=== PATIENT | male | born 1950 | race Caucasian/White ===

== ENCOUNTER → 2019-07-11 12:04 | Outpatient (CLI) | payer OTHER, SELFPAY ==
--- NOTE | ~2019-07-11 | XR_ITS ---
EXAMINATION:XR cervical spine 4-5V DATE: 07/11/2019 12:37 INDICATION: Cervical disc disorder TECHNIQUE: AP, lateral and neutral, flexion, extension, lateral swimmers and odontoid views of the ce rvical spine are provided. COMPARISON: None FINDINGS: There are changes of interval anterior fusion from C5 through C7. Alignment is normal. Ther e is no laxity with flexion or extension. The odontoid is intact. No fracture is identified. The vert ebral body heights are normal. Prevertebral soft tissues are normal. IMPRESSION: 1. Changes of interval anterior fusion from C5 through C7 without acute abnormality. Reviewed, dictated and finalized at location B. IMPRESSION: 1. Changes of interval anterior fusion from C5 through C7 without acute abnorma lity.
== END ==
DX: M50.120 Mid-cervical disc disorder, unspecified level (principal); Z98.1 Arthrodesis status
CPT/HCPCS: 72050

== ENCOUNTER 2019-11-14 06:58 | Outpatient (CLI) | payer OTHER, SELFPAY ==
--- NOTE | ~2019-11-14 | CT_ITS ---
EXAMINATION: CT abdomen wo con DATE: 11/14/2019 07:21 INDICATION: Epigastric abdominal pain. TECHNIQUE: Computed tomography (CT) of the abdomen was performed without intravenous contrast. Automa peña exposure control and iterative reconstruction technique were employed. The dose-length product wa s 686.78 mGy-cm. COMPARISON: CT abdomen and pelvis 10/06/2010 FINDINGS: The visualized portions of the lung bases are clear without pneumonia or pleural effusion. The heart size is normal. No pericardial effusion. There are coronary artery calcifications. There ar e cysts in the liver measuring up to 2.9 cm. The gallbladder, spleen, pancreas, adrenal glands, and k idneys are normal. There is no urolithiasis. There are no dilated loops of bowel. There are no pathol ogically enlarged lymph nodes. There is no free intraperitoneal fluid. There is mild thoracolumbar sp ondylosis. IMPRESSION: 1. No specific etiology for the patient's symptoms. Reviewed, dictated and finalized at location A.
== END 2019-11-14 06:59 | disposition home or self-care (01) ==
PROVIDERS: PCP Family Medicine; Visit Provider Family Medicine
DX: R10.13 Epigastric pain (principal)
CPT/HCPCS: 74150

== ENCOUNTER 2020-02-12 01:39 | Outpatient (CLI) | payer OTHER, SELFPAY ==
[2020-02-12 21:22] LABS: SARS-CoV-2 RNA PCR Negative
== END 2020-02-12 01:40 | disposition home or self-care (01) ==
LOC: ANHCOVIDDT 01:39
PROVIDERS: PCP Family Medicine; Visit Provider Internal Medicine Gastroenterology
DX: Z01.812 Encounter for preprocedural laboratory examination (principal); Z20.828 Contact with and (suspected) exposure to other viral communicable diseases
CPT/HCPCS: 87635; C9803; U0003

== ENCOUNTER 2020-02-15 01:21 | Day surgery (SDC) | payer OTHER, SELFPAY ==
[2020-02-08 14:39] VITALS: BMI 31.8
[2020-02-15 10:45] VITALS: BP 140/69; PULSE 84; RESP 18; TEMP 36.8; O2SAT 98; BMI 31.4
[2020-02-15] MEDS: LACTATED RINGERS 1,000 ML 150 ML IV CONT (10:56)
--- NOTE | 2020-02-15 11:29 | WPDANESEPPF ---
Anes - Initial Pre Proc Eval Procedure: Operation Date: 02/15/20 12:00 Proposed Procedures p Colonoscopy - Adán Swanson DO Date/Time: 02/15/20 11:29 Surgeon: Adán Swanson DO Pre Op Diagnosis: Left Upper Quadrant Abdominal Pain Patient Data Age: 69 Gender: M Height: 5 ft 9 in Weight: 96.6 kg Last Vital Signs Temp 98.3 F 02/15/20 10:45 Pulse 84 02/15/20 10:45 Resp 18 02/15/20 10:45 BP 140/69 02/15/20 10:45 Pulse Ox 98 02/15/20 10:45 Allergies Allergy/AdvReac Type Severity Reaction Status Date / Time No Known Allergies Allergy Verified 02/15/20 10:37 Home Medications Medication Instructions Recorded Confirmed Type tamsulosin 0.4 mg capsule 0.4 mg PO QPM cap 04/04/19 02/15/20 History aspirin 81 mg tablet,delayed 81 mg PO DAILY 07/04/19 02/15/20 History release atorvastatin 80 mg tablet 80 mg PO DAILY 07/04/19 02/15/20 History lisinopril 20 1 tablet PO DAILY 07/04/19 02/15/20 History mg-hydrochlorothiazide 25 mg tablet amlodipine 10 mg tablet 10 mg PO DAILY #90 tablet 11/28/19 02/15/20 Rx hydroxyzine HCl 50 mg tablet 50 mg PO BID PRN #60 tablet 02/01/20 02/15/20 Rx spironolactone 25 mg tablet 25 mg PO DAILY 02/01/20 02/15/20 History tadalafil 10 mg tablet 10 mg PO DAILY PRN 02/01/20 02/08/20 History fluticasone 250 mcg-salmeterol 50 1 inh INHALATION BID #60 ea 02/06/20 02/15/20 Rx mcg/dose blistr powdr for inhalation Patient hx anesthesia problems: none Family hx anesthesia problems: none PMFSH Past Medical History Medical History Asthma BMI 32.0-32.9,adult BPH (benign prostatic hyperplasia) CAD (coronary artery disease) HLD (hyperlipidemia) HTN (hypertension) Mild asthma Mitral valve prolapse Surgical History Surgical History Hx of cardiac catheterization Hx of heart artery stent Status post coronary artery stent placement Social History Social History Smoking packs per day: 0.5 Smoking cigarettes per day: 10.0 Years smoked: 8 Smoking pack-years: 4.00 Smoking status: Former smoker Tobacco type: cigarettes Second hand tobacco smoke exposure: No Smoking end date: 03/29/77 Alcohol intake: current Drinks per week: 4 Alcohol use details: BEER Substance use: never Substance use type: does not use Living arrangements: with family Gender identity (if verbalized by the patient): Male Spiritual care concerns: No Agree to blood products: Yes Anes - Eval Final PreProcedure Day of Procedure 02/15/20 11:29 Patient weight: overweight Heart: regular rate and rhythm Lungs: clear to auscultation Airway: Mallampati scale class II Neurological: alert and oriented Last oral intake: >/= 8 hours ASA classification: III Emergent: no Anesthetic plan: proceed Anesthesia type and monitoring: general GIVS and standard monitoring Informed Consent: The patient's anesthetic plan and its attendant risks and benefits were discussed with the patient/family/POA. Questions were solicited and answers provided to the satisfaction of the patient/family/POA.
--- NOTE | 2020-02-15 11:54 | PM.IMHP ---
H&P: HPI History of Present Illness Date/Time: 02/15/20 11:54 Chief complaint: Left Upper Quadrant Abdominal Pain Narrative: reason for visit is colonoscopy. Very pleasant gentleman is here at the request of the primary physician. The patient was examined. Impression: Screening colonoscopy. Patient does have alternating constipation diarrhea which is compatible with IBS. Asthma. HLD. HTN. ED. BPH. Obesity. CAD status post angioplasty with stent placement x2. Recommendation: Colonoscopy. History: This very pleasant gentleman is a history of colonoscopy several years ago. He is here for screening colonoscopy. He does have complaints of alternating constipation and diarrhea. He will occasionally notice dark stool. He really has indigestion. Patient is here for colonoscopy for screening. Patient does complain of some anxiety over the quarantine. Physical examination: General: very pleasant patient in no acute distress. HEENT: Head was normocephalic sclerae is clear mouth without masses neck was supple. Heart: Rate rhythm regular without S3 or S4. Lungs: CTA. Abdomen: Soft with no guarding or rigidity. Bowel sounds were active. Neurologic: Cranial nerves 2 through 12 intact. No focal defects. No clonus. Musculoskeletal system: Revealed no joint tenderness or swelling no muscle atrophy. Extremities: Reveal no significant edema. Skin: Warm and dry with normal turgor. Mental status: intact. Patient is alert and oriented. Review of Systems Review of Systems: All systems reviewed & are unremarkable except as noted in HPI and below PMFSH Past Medical History Medical History Asthma BMI 32.0-32.9,adult BPH (benign prostatic hyperplasia) CAD (coronary artery disease) HLD (hyperlipidemia) HTN (hypertension) Mild asthma Mitral valve prolapse Surgical History Surgical History Hx of cardiac catheterization Hx of heart artery stent Status post coronary artery stent placement Social History Social History Smoking packs per day: 0.5 Smoking cigarettes per day: 10.0 Years smoked: 8 Smoking pack-years: 4.00 Smoking status: Former smoker Tobacco type: cigarettes Second hand tobacco smoke exposure: No Smoking end date: 03/29/77 Alcohol intake: current Drinks per week: 4 Alcohol use details: BEER Substance use: never Substance use type: does not use Living arrangements: with family Gender identity (if verbalized by the patient): Male Spiritual care concerns: No Agree to blood products: Yes Meds Home Medications and Allergies Home Medications Medication Instructions Recorded Confirmed Type tamsulosin 0.4 mg capsule 0.4 mg PO QPM cap 04/04/19 02/15/20 History aspirin 81 mg tablet,delayed 81 mg PO DAILY 07/04/19 02/15/20 History release atorvastatin 80 mg tablet 80 mg PO DAILY 07/04/19 02/15/20 History lisinopril 20 1 tablet PO DAILY 07/04/19 02/15/20 History mg-hydrochlorothiazide 25 mg tablet amlodipine 10 mg tablet 10 mg PO DAILY #90 tablet 11/28/19 02/15/20 Rx hydroxyzine HCl 50 mg tablet 50 mg PO BID PRN #60 tablet 02/01/20 02/15/20 Rx spironolactone 25 mg tablet 25 mg PO DAILY 02/01/20 02/15/20 History tadalafil 10 mg tablet 10 mg PO DAILY PRN 02/01/20 02/08/20 History fluticasone 250 mcg-salmeterol 50 1 inh INHALATION BID #60 ea 02/06/20 02/15/20 Rx mcg/dose blistr powdr for inhalation Allergies Allergy/AdvReac Type Severity Reaction Status Date / Time No Known Allergies Allergy Verified 02/15/20 10:37 Vital Signs Vital Signs - 24 hr 02/15/20 10:45 Temperature 36.8 C Pulse Rate 84 Respiratory Rate 18 Blood Pressure 140/69 Pulse Oximetry 98
[2020-02-15] MEDS: CENTRAL LINE FLUSH 8 ML XX (12:23)
[2020-02-15 12:27] VITALS: BP 86/53; PULSE 75; RESP 21; O2SAT 93
[2020-02-15 12:37] VITALS: BP 87/53; PULSE 78; RESP 22; O2SAT 95
[2020-02-15 12:47] VITALS: BP 113/72; PULSE 66; RESP 20; O2SAT 99
== END 2020-02-15 13:04 | disposition home or self-care (01) ==
PROVIDERS: PCP Family Medicine; Visit Provider Internal Medicine Gastroenterology
PROC: 0DJD8ZZ Inspection of Lower Intestinal Tract, Via Natural or Artificial Opening Endoscopic (ICD-10-PCS; CPT 45378; principal; 2020-02-15 12:00)
DX: Z12.11 Encounter for screening for malignant neoplasm of colon (principal); K55.20 Angiodysplasia of colon without hemorrhage; K64.8 Other hemorrhoids; K59.00 Constipation, unspecified; R19.7 Diarrhea, unspecified; I10 Essential (primary) hypertension; E78.5 Hyperlipidemia, unspecified; I25.10 Atherosclerotic heart disease of native coronary artery without angina pectoris; J45.909 Unspecified asthma, uncomplicated; I34.1 Nonrheumatic mitral (valve) prolapse; N40.0 Benign prostatic hyperplasia without lower urinary tract symptoms; E66.9 Obesity, unspecified; Z68.31 Body mass index [BMI] 31.0-31.9, adult; Z79.82 Long term (current) use of aspirin; Z95.5 Presence of coronary angioplasty implant and graft; Z87.891 Personal history of nicotine dependence
CPT/HCPCS: 45381; 45388; J2704; J7120

== ENCOUNTER 2020-02-23 12:29 | Emergency (ER) | payer OTHER, SELFPAY ==
--- NOTE | ~2020-02-23 | XR_ITS ---
EXAMINATION: XR chest 2V DATE: 02/23/2020 16:24 INDICATION: Dizziness. Asthma. TECHNIQUE: Frontal and lateral views of the chest were obtained. COMPARISON: Chest 2 views 11/02/2016, CT abdomen and pelvis 11/14/2019 FINDINGS: The chest demonstrates clear lungs without pneumonia, pleural effusion, or pneumothorax. Th e heart size is normal. There are changes of anterior fusion procedure in cervical spine. IMPRESSION: 1. No acute cardiopulmonary disease. Reviewed, dictated and finalized at location A. ENGINEER
[2020-02-23 12:55] VITALS: BP 136/69; PULSE 87; RESP 16; TEMP 36.6; O2SAT 100
--- NOTE | 2020-02-23 15:19 | ED.DIZZY ---
HPI - Dizziness General Chief Complaint: Dizziness Stated Complaint: heart racing Time Seen by Provider: 02/23/20 15:19 Source: patient Mode of arrival: ambulatory Limitations: no limitations History of Present Illness HPI Narrative: Patient is a 69-year-old gentleman with a history of hyperlipidemia, coronary artery disease who presents for evaluation of shortness of breath with exertion. Patient states he was moving some heavy boxes out of his basement this morning he began to feel lightheaded, had racing heart and short of breath. He states his heart rate increased to the 119. Patient denied any chest pain. He reported mild nausea. His symptoms resolved with rest. Patient has been compliant with his medications. He has a history of 2 stents and follows with Dr. Jaquez with cardiology. Patient denies any current dizziness. No lightheadedness. No current chest pain. Related Data Home Medications Medication Instructions Recorded Confirmed tamsulosin 0.4 mg capsule 0.4 mg PO QPM cap 04/04/19 02/15/20 aspirin 81 mg tablet,delayed 81 mg PO DAILY 07/04/19 02/15/20 release atorvastatin 80 mg tablet 80 mg PO DAILY 07/04/19 02/15/20 lisinopril 20 1 tablet PO DAILY 07/04/19 02/15/20 mg-hydrochlorothiazide 25 mg tablet spironolactone 25 mg tablet 25 mg PO DAILY 02/01/20 02/15/20 tadalafil 10 mg tablet 10 mg PO DAILY PRN 02/01/20 02/08/20 Allergies Allergy/AdvReac Type Severity Reaction Status Date / Time No Known Allergies Allergy Verified 02/23/20 16:12 Review of Systems Review of Systems: Narrative: CONSTITUTIONAL: Denies fever, chills, or sweats. EYES: Denies visual changes, redness, or discharge. ENT: Denies rhinorrhea, congestion, sore throat, or otalgia. CARDIOVASCULAR: Denies current chest pain, palpitations, or edema. RESPIRATORY: Denies cough or dyspnea. GASTROINTESTINAL: Denies abdominal pain, nausea, vomiting, or diarrhea. GENITOURINARY: Denies dysuria or hematuria. SKIN: Denies rash or itching. MUSCULOSKELETAL: Denies back pain, joint pain, or myalgia. NEUROLOGIC: Denies headache, numbness, or weakness. [facility] Past Medical History Medical History (Updated 11/27/20 @ 20:05 by Gretta Bautista MD) Asthma BMI 32.0-32.9,adult BPH (benign prostatic hyperplasia) CAD (coronary artery disease) HLD (hyperlipidemia) HTN (hypertension) Mild asthma Mitral valve prolapse Surgical History Surgical History Hx of cardiac catheterization Hx of heart artery stent Status post coronary artery stent placement Social History Social History Smoking packs per day: 0.5 Smoking cigarettes per day: 10.0 Years smoked: 8 Smoking pack-years: 4.00 Smoking status: Former smoker Tobacco type: cigarettes Second hand tobacco smoke exposure: No Smoking end date: 03/29/77 Alcohol intake: current Drinks per week: 4 Substance use: never Substance use type: does not use Gender identity (if verbalized by the patient): Male Spiritual care concerns: No Agree to blood products: Yes Exam Narrative: Exam Narrative: GENERAL: Awake, alert, conversant HEAD: Normocephalic, atraumatic. EYES: PERRLA and EOMI. ENT: Nares clear, no rhinorrhea or epistaxis. Mucous membranes moist. NECK: Supple. CHEST: No respiratory distress, breathing even and non labored, no chest wall tenderness HEART: Regular rate, sinus rhythm ABDOMEN:Non distended, non tender EXTREMITIES: Normal range of motion. No edema. SKIN: Warm, dry, no rash. NEURO:No focal deficits. Alert and oriented x3 Course Vital Signs Vital signs: Vital Signs Temperature 36.6 C 02/23/20 12:55 Pulse Rate 87 02/23/20 12:55 Respiratory Rate 16 02/23/20 12:55 Blood Pressure 136/69 02/23/20 12:55 Pulse Oximetry 100 02/23/20 12:55 Temperature 36.6 C 02/23/20 12:55 Pulse Rate 87 02/23/20 12:55 Respiratory Rate 16
[2020-02-23 16:45] LABS: Basophils Percent Auto 0.4 % (0.2-1.2); Eosinophils Absolute Auto 0.1 K/mm3 (0-0.3); Eosinophils Percent Auto 1.3 % (0-4.4); Hematocrit 44.1 % (42.0-52.0); Hemoglobin 15.1 g/dL (14.0-18.0); Immature Granulocyte Absolute 0.02 K/mm3 (0.00-0.031); Immature Granulocyte Percent A 0.2 % (0-0.5); Lymphocytes Absolute Auto 1.35 K/mm3 (0.9-3.2); Lymphocytes Percent Auto 14.7 % (18.3-44.2); Mean Corpuscular HGB Conc 34.2 g/dl (32-36); Mean Corpuscular Hemoglobin 29.5 pg (26-34); Mean Corpuscular Volume 86.1 fl (80-100); Mean Platelet Volume 9.3 fl (7.4-10.4); Monocytes Absolute Auto 0.6 K/mm3 (0.1-0.6); Neutrophils Percent Auto 76.4 % (45.5-73.1); Platelet Count Result 237 k/mm3 (150-375); Red Blood Count 5.12 M/mm3 (4.6-6.20); Red Cell Distribution Width 13.9 % (11.5-14.5); White Blood Count 9.2 K/mm3 (4.5-10.0)
[2020-02-23 16:55] LABS: Partial Thromboplastin Time 25.1 SECONDS (22.3-36.8); Prothrombin Time 13.3 Seconds (11.1-14.7)
[2020-02-23 16:56] LABS: Anion Gap 13 mmol/L (8-16); Blood Urea Nitrogen 19 mg/dL (9-20); Calcium 9.4 mg/dL (8.4-10.2); Carbon Dioxide 25 mmol/L (22-30); Chloride 95 mmol/L (98-107); Estimated CRCL calculation 40 ml/min; Estimated Glomerular Filt Rate 60; Glucose 115 mg/dL (75-110); Potassium 4.2 mmol/L (3.4-5.0); Sodium 133 mmol/L (137-145)
[2020-02-23 17:12] LABS: Troponin I < 0.012 ng/mL (0.000-0.034)
[2020-02-23] MEDS: ASPIRIN 81 MG CHEWABLE TABLET 324 MG PO (17:32)
--- NOTE | 2020-02-23 17:32 | PC.NURSE ---
Pt is not nauseated at present, holding zofran.
[2020-02-23 19:45] LABS: Troponin I < 0.012 ng/mL (0.000-0.034)
[2020-02-23 20:50] VITALS: BP 118/73; PULSE 67; RESP 17; TEMP 36.6; O2SAT 100
== END 2020-02-23 20:56 | disposition home or self-care (01) ==
PROVIDERS: Emergency Provider Emergency Medicine; PCP Family Medicine
DX: R06.00 Dyspnea, unspecified (principal); E78.5 Hyperlipidemia, unspecified; I25.10 Atherosclerotic heart disease of native coronary artery without angina pectoris; N40.0 Benign prostatic hyperplasia without lower urinary tract symptoms; J45.909 Unspecified asthma, uncomplicated; I34.1 Nonrheumatic mitral (valve) prolapse; Z95.5 Presence of coronary angioplasty implant and graft; Z87.891 Personal history of nicotine dependence
CPT/HCPCS: 36415; 71046; 80048; 84484; 85025; 85610; 85730; 93005; 99284; A9270

== ENCOUNTER → 2020-05-06 01:12 | Outpatient (CLI) | payer OTHER, SELFPAY ==
[2020-05-06 18:28] LABS: SARS-CoV-2 RNA PCR Negative
== END ==
PROVIDERS: PCP Physician Assistant; Visit Provider Internal Medicine Gastroenterology
DX: Z01.812 Encounter for preprocedural laboratory examination (principal); Z20.822 Contact with and (suspected) exposure to COVID-19
CPT/HCPCS: C9803; U0003; U0005

== ENCOUNTER 2020-05-09 00:53 | Day surgery (SDC) | payer OTHER, SELFPAY ==
[2020-04-18 14:08] VITALS: BMI 31.8
[2020-05-09 07:57] VITALS: BP 147/78; PULSE 79; RESP 20; TEMP 37.3; O2SAT 99
[2020-05-09] MEDS: LACTATED RINGERS 1,000 ML 150 ML IV CONT (08:14)
--- NOTE | 2020-05-09 08:46 | WPDANESEPPF ---
Anes - Initial Pre Proc Eval Procedure: Operation Date: 05/09/20 09:00 Proposed Procedures p Esophagogastroduodenoscopy - Adán Swanson DO Date/Time: 05/09/20 08:46 Surgeon: Adán Swanson DO Pre Op Diagnosis: Epigastric Pain Patient Data Age: 69 Gender: M Height: 1.75 m Weight: 98.4 kg Last Vital Signs Temp 37.3 C 05/09/20 07:57 Pulse 79 05/09/20 07:57 Resp 20 05/09/20 07:57 BP 147/78 H 05/09/20 07:57 Pulse Ox 99 05/09/20 07:57 Allergies Allergy/AdvReac Type Severity Reaction Status Date / Time No Known Allergies Allergy Verified 04/18/20 14:02 Home Medications Medication Instructions Recorded Confirmed Type tamsulosin 0.4 mg capsule 0.4 mg PO QPM cap 04/04/19 04/18/20 History aspirin 81 mg tablet,delayed 81 mg PO DAILY 07/04/19 04/18/20 History release atorvastatin 80 mg tablet 80 mg PO DAILY 07/04/19 04/18/20 History lisinopril 20 1 tablet PO DAILY 07/04/19 04/18/20 History mg-hydrochlorothiazide 25 mg tablet amlodipine 10 mg tablet 10 mg PO DAILY #90 tablet 11/28/19 04/18/20 Rx spironolactone 25 mg tablet 25 mg PO DAILY 02/01/20 04/18/20 History fluticasone 250 mcg-salmeterol 50 1 inh INHALATION BID #60 ea 04/02/20 04/18/20 Rx mcg/dose blistr powdr for inhalation carvedilol 3.125 mg PO BID 04/18/20 04/18/20 History Patient hx anesthesia problems: none Family hx anesthesia problems: none PMFSH Past Medical History Medical History Asthma BMI 32.0-32.9,adult BPH (benign prostatic hyperplasia) CAD (coronary artery disease) HLD (hyperlipidemia) HTN (hypertension) Mild asthma Mitral valve prolapse Surgical History Surgical History Hx of cardiac catheterization Hx of heart artery stent Status post coronary artery stent placement Social History Social History Smoking packs per day: 0.5 Smoking cigarettes per day: 10.0 Years smoked: 8 Smoking pack-years: 4.00 Smoking status: Former smoker Tobacco type: cigarettes Second hand tobacco smoke exposure: No Smoking end date: 03/29/77 Alcohol intake: current Drinks per week: 2 Substance use: never Substance use type: does not use Living arrangements: with family Gender identity (if verbalized by the patient): Male Spiritual care concerns: No Agree to blood products: Yes Anes - Eval Final PreProcedure Day of Procedure 05/09/20 08:46 Patient weight: obese Heart: regular rate and rhythm Lungs: clear to auscultation and normal air movement Airway: Mallampati scale class II Neurological: alert and oriented Last oral intake: >/= 8 hours ASA classification: III Emergent: no Anesthetic plan: proceed Anesthesia type and monitoring: general GIVS Informed Consent: The patient's anesthetic plan and its attendant risks and benefits were discussed with the patient/family/POA. Questions were solicited and answers provided to the satisfaction of the patient/family/POA.
--- NOTE | 2020-05-09 09:28 | WPDGICN ---
GI Consult Note Consult date/time: 05/09/20 09:28 HPI: Reason for visit is EGD. This very pleasant gentleman's here for an EGD. At the request of the primary physician. Impression: Here of a gentleman with left upper quadrant pain. We will evaluate for underlying peptic ulcer disease. Definite etiology the pain is certainly obscured at this time. GERD fairly well controlled on medication. HTN. HLD. CAD status post stent placement x2. BPH. Asthma. Recommendation: EGD. History: This very pleasant gentleman is here for left upper quadrant abdominal pain. He has this abdominal pain that occurs in the left upper quadrant. It is unaffected by eating or defecation. He does week and occasionally nocturnally with the pain. The pain is described as cramping and burning in nature. Hematochezia, melena colic stools overnight. He has occasional breakthrough heartburn on 40 mg of omeprazole per day. Dysphagia And odynophagia are denied. Fever, chills, night sweats and weight loss Are denied. Physical examination: General: very pleasant patient in no acute distress. HEENT: Head was normocephalic sclerae is clear mouth without masses neck was supple. Heart: Rate rhythm regular without S3 or S4. Lungs: CTA. Abdomen: Soft with no guarding or rigidity. Bowel sounds were active. Neurologic: Cranial nerves 2 through 12 intact. No focal defects. No clonus. Musculoskeletal system: Revealed no joint tenderness or swelling no muscle atrophy. Extremities: Reveal no significant edema. Skin: Warm and dry with normal turgor. Mental status: intact. Patient is alert and oriented. Review of Systems Review of Systems: All systems reviewed & are unremarkable except as noted in HPI and below PMFSH Past Medical History Medical History Asthma BMI 32.0-32.9,adult BPH (benign prostatic hyperplasia) CAD (coronary artery disease) HLD (hyperlipidemia) HTN (hypertension) Mild asthma Mitral valve prolapse Surgical History Surgical History Hx of cardiac catheterization Hx of heart artery stent Status post coronary artery stent placement Social History Social History Smoking packs per day: 0.5 Smoking cigarettes per day: 10.0 Years smoked: 8 Smoking pack-years: 4.00 Smoking status: Former smoker Tobacco type: cigarettes Second hand tobacco smoke exposure: No Smoking end date: 03/29/77 Alcohol intake: current Drinks per week: 2 Substance use: never Substance use type: does not use Living arrangements: with family Gender identity (if verbalized by the patient): Male Spiritual care concerns: No Agree to blood products: Yes Meds Home Medications and Allergies Home Medications Medication Instructions Recorded Confirmed Type tamsulosin 0.4 mg capsule 0.4 mg PO QPM cap 04/04/19 04/18/20 History aspirin 81 mg tablet,delayed 81 mg PO DAILY 07/04/19 04/18/20 History release atorvastatin 80 mg tablet 80 mg PO DAILY 07/04/19 04/18/20 History lisinopril 20 1 tablet PO DAILY 07/04/19 04/18/20 History mg-hydrochlorothiazide 25 mg tablet amlodipine 10 mg tablet 10 mg PO DAILY #90 tablet 11/28/19 04/18/20 Rx spironolactone 25 mg tablet 25 mg PO DAILY 02/01/20 04/18/20 History fluticasone 250 mcg-salmeterol 50 1 inh INHALATION BID #60 ea 04/02/20 04/18/20 Rx mcg/dose blistr powdr for inhalation carvedilol 3.125 mg PO BID 04/18/20 04/18/20 History Allergies Allergy/AdvReac Type Severity Reaction Status Date / Time No Known Allergies Allergy Verified 04/18/20 14:02 Vital Signs Vital Signs - 24 hr 05/09/20 07:57 Temperature 37.3 C Pulse Rate 79 Respiratory Rate 20 Blood Pressure 147/78 H Pulse Oximetry 99
[2020-05-09] MEDS: BENZOCAINE (*SP) 60 ML SPRAY CAN (HURRICAINE) 1 SPRAY MUCOUS MEM (09:33)
[2020-05-09 09:43] VITALS: BP 104/66; PULSE 76; RESP 23; O2SAT 98
--- NOTE | 2020-05-09 09:51 | WPDGICN ---
GI Consult Note Consult date/time: 05/09/20 09:51 HPI: Reason for visit is colonoscopy. This very pleasant gentleman seen in consultation request of the primary physician. Impression: This very pleasant gentleman is here with a positive stool base DNA test. He does have some loose stools. With the evaluate for underlying inflammatory neoplastic disease. Pre diabetes. HLD. HTN. Glaucoma. Neuropathy. History prostate cancer status post prostatectomy. Recommendation: Colonoscopy. History: This very pleasant gentleman is here for colonoscopy. Has a positive stool based DNA test. He does complain of loose stools at times. Nausea, vomiting, hematemesis, dysphagia, odynophagia, fever Cate through tonight. He does have a 5 lb weight loss which she attributes to discontinuing sweets. He is here for colonoscopy due to his positive stool base DNA test. Physical examination: General: very pleasant patient in no acute distress. HEENT: Head was normocephalic sclerae is clear mouth without masses neck was supple. Heart: Rate rhythm regular without S3 or S4. Lungs: CTA. Abdomen: Soft with no guarding or rigidity. Bowel sounds were active. Neurologic: Cranial nerves 2 through 12 intact. No focal defects. No clonus. Musculoskeletal system: Revealed no joint tenderness or swelling no muscle atrophy. Extremities: Reveal no significant edema. Skin: Warm and dry with normal turgor. Mental status: intact. Patient is alert and oriented. Review of Systems Review of Systems: All systems reviewed & are unremarkable except as noted in HPI and below PMFSH Past Medical History Medical History Asthma BMI 32.0-32.9,adult BPH (benign prostatic hyperplasia) CAD (coronary artery disease) HLD (hyperlipidemia) HTN (hypertension) Mild asthma Mitral valve prolapse Surgical History Surgical History Hx of cardiac catheterization Hx of heart artery stent Status post coronary artery stent placement Social History Social History Smoking packs per day: 0.5 Smoking cigarettes per day: 10.0 Years smoked: 8 Smoking pack-years: 4.00 Smoking status: Former smoker Tobacco type: cigarettes Second hand tobacco smoke exposure: No Smoking end date: 03/29/77 Alcohol intake: current Drinks per week: 2 Substance use: never Substance use type: does not use Living arrangements: with family Gender identity (if verbalized by the patient): Male Spiritual care concerns: No Agree to blood products: Yes Meds Home Medications and Allergies Home Medications Medication Instructions Recorded Confirmed Type tamsulosin 0.4 mg capsule 0.4 mg PO QPM cap 04/04/19 04/18/20 History aspirin 81 mg tablet,delayed 81 mg PO DAILY 07/04/19 04/18/20 History release atorvastatin 80 mg tablet 80 mg PO DAILY 07/04/19 04/18/20 History lisinopril 20 1 tablet PO DAILY 07/04/19 04/18/20 History mg-hydrochlorothiazide 25 mg tablet amlodipine 10 mg tablet 10 mg PO DAILY #90 tablet 11/28/19 04/18/20 Rx spironolactone 25 mg tablet 25 mg PO DAILY 02/01/20 04/18/20 History fluticasone 250 mcg-salmeterol 50 1 inh INHALATION BID #60 ea 04/02/20 04/18/20 Rx mcg/dose blistr powdr for inhalation carvedilol 3.125 mg PO BID 04/18/20 04/18/20 History Allergies Allergy/AdvReac Type Severity Reaction Status Date / Time No Known Allergies Allergy Verified 04/18/20 14:02 Vital Signs Vital Signs - 24 hr 05/09/20 07:57 Temperature 37.3 C Pulse Rate 79 Respiratory Rate 20 Blood Pressure 147/78 H Pulse Oximetry 99
[2020-05-09 09:53] VITALS: BP 112/72; PULSE 75; RESP 20; O2SAT 97
[2020-05-09 10:01] VITALS: BP 106/83; PULSE 75; RESP 20; O2SAT 98
== END 2020-05-09 10:17 | disposition home or self-care (01) ==
PROVIDERS: PCP Physician Assistant; Visit Provider Internal Medicine Gastroenterology
PROC: 0DJ08ZZ Inspection of Upper Intestinal Tract, Via Natural or Artificial Opening Endoscopic (ICD-10-PCS; CPT 43235; principal; 2020-05-09 09:00)
DX: R10.12 Left upper quadrant pain (principal); K44.9 Diaphragmatic hernia without obstruction or gangrene; K21.9 Gastro-esophageal reflux disease without esophagitis; R19.5 Other fecal abnormalities; I10 Essential (primary) hypertension; E78.5 Hyperlipidemia, unspecified; R73.03 Prediabetes; G62.9 Polyneuropathy, unspecified; H40.9 Unspecified glaucoma; Z85.46 Personal history of malignant neoplasm of prostate; I25.10 Atherosclerotic heart disease of native coronary artery without angina pectoris; J45.909 Unspecified asthma, uncomplicated; I34.1 Nonrheumatic mitral (valve) prolapse; N40.0 Benign prostatic hyperplasia without lower urinary tract symptoms; E66.9 Obesity, unspecified; Z68.32 Body mass index [BMI] 32.0-32.9, adult; Z87.891 Personal history of nicotine dependence
CPT/HCPCS: 43239; 87081; 88305; J2704; J7120

== ENCOUNTER 2021-02-18 08:30 | Outpatient (CLI) | payer OTHER, SELFPAY ==
--- NOTE | ~2021-02-18 | CT_ITS ---
EXAMINATION:CT diagnostic chest w con DATE: 02/18/2021 09:15 INDICATION: Pleurisy. TECHNIQUE: Computed tomography (CT) of the chest was performed with 75 mL Omnipaque 350 intravenous c ontrast. Automated exposure control and iterative reconstruction technique were employed. The dose-le ngth product (DLP) was 317.47 mGy-cm. COMPARISON: Chest CT 08/15/2009 FINDINGS: There is mild scarring at the lung apices. A calcified right lung nodule is consistent with old granulomatous disease. No pleural effusion. The heart size is normal. There are coronary artery calcifications. There is a small pericardial effusion. There is mild bilateral gynecomastia. There is a small sliding hiatal hernia. There are cysts in the liver measuring up to 3.4 cm. There is mild th oracic spondylosis. There are changes of anterior fusion procedure in cervical spine. IMPRESSION: 1. Small pericardial effusion. 2. Small sliding hiatal hernia. Reviewed, dictated and finalized at location B. CONSULTANT
== END 2021-02-18 08:31 | disposition home or self-care (01) ==
LOC: ANHIMG 08:36
PROVIDERS: PCP Family Medicine; Visit Provider Physician Assistant
DX: R06.02 Shortness of breath (principal); R09.1 Pleurisy; I31.3 Pericardial effusion (noninflammatory); K44.9 Diaphragmatic hernia without obstruction or gangrene
CPT/HCPCS: 71260; Q9967

== ENCOUNTER 2021-05-16 15:45 | Emergency (ER) | payer OTHER, SELFPAY ==
[2021-05-16] VITALS (24 sets, daily range): BP systolic 116–153; BP diastolic 63–87; PULSE 56–77; RESP 11–21; TEMP 36.6; O2SAT 95–100
--- NOTE | 2021-05-16 15:46 | ECG_ITS ---
Measurements Intervals [place] Rate: 71 P: 71 [place]: 163 QRS: 7 QRSD: 96 T: 29 QT: 339 QTc: 370 Interpretive Statements SINUS RHYTHM NONSPECIFIC T-WAVE ABNORMALITY- ANT/INF LEADS BASELINE ARTIFACT- II, III, AVR, AVF, V3-V6 BORDERLINE ECG Electronically Signed On 05-16-2021 16:52:58 CREDIT DIRECTOR by Girma Jacob D.O.
--- NOTE | 2021-05-16 16:53 | ED.ARRPALP ---
HPI - Arrhythmia/Palpitations General Chief Complaint: Arrhythmia/Palpitations Stated Complaint: heart is skipping beats Time Seen by Provider: 05/16/21 16:52 History of Present Illness HPI narrative: 62-year-old male presents to the emergency room with complaints of palpitations that occurred after he woke up from an afternoon nap states that the palpitations lasted for about 1 to 2minutes he looked at his watch and noticed that his heart rate was in the upper 40s. Patient is status post x2 stents 2016. Patient also states that he had an echo scheduled a month ago and was told that the results were normal. Denies shortness of breath lightheadedness dizziness nausea. Related Data Home Medications Medication Instructions Recorded Confirmed tamsulosin 0.4 mg capsule 0.4 mg PO QPM cap 04/04/19 06/11/20 aspirin 81 mg tablet,delayed 81 mg PO DAILY 07/04/19 06/11/20 release atorvastatin 80 mg tablet 80 mg PO DAILY 07/04/19 06/11/20 lisinopril 20 1 tablet PO DAILY 07/04/19 06/11/20 mg-hydrochlorothiazide 25 mg tablet carvedilol 3.125 mg PO BID 04/18/20 06/11/20 acetaminophen 500 mg capsule 1,000 mg PO Q6H PRN cap 06/11/20 06/11/20 dicyclomine 10 mg capsule 10 mg PO TID 06/11/20 06/11/20 buspirone 10 mg tablet 5 mg PO BID PRN tablet 02/13/21 Allergies Allergy/AdvReac Type Severity Reaction Status Date / Time No Known Allergies Allergy Verified 02/13/21 09:27 Review of Systems Review of Systems: CONSTITUTIONAL: Denies fever, chills, or sweats. EYES: Denies visual changes, redness, or discharge. ENT: Denies rhinorrhea, congestion, sore throat, or otalgia. CARDIOVASCULAR: Denies chest pain or edema. Palpitation per HPI RESPIRATORY: Denies cough or dyspnea. GASTROINTESTINAL: Denies abdominal pain, nausea, vomiting, or diarrhea. GENITOURINARY: Denies dysuria or hematuria. SKIN: Denies rash or itching. MUSCULOSKELETAL: Denies back pain, joint pain, or myalgia. NEUROLOGIC: Denies headache, numbness, dizziness, or weakness. PSYCHIATRIC: Denies anxiety or depression. [facility] Past Medical History Medical History Asthma BMI 32.0-32.9,adult BPH (benign prostatic hyperplasia) CAD (coronary artery disease) HLD (hyperlipidemia) HTN (hypertension) Mild asthma Mitral valve prolapse Surgical History Surgical History Hx of cardiac catheterization Hx of heart artery stent Status post coronary artery stent placement Family History Family History Other Diabetes mellitus Social History Social History Smoking packs per day: 0.5 Smoking cigarettes per day: 10.0 Years smoked: 8 Smoking pack-years: 4.00 Smoking status: Never smoker Tobacco type: cigarettes Second hand tobacco smoke exposure: No Smoking end date: 03/29/77 Alcohol intake: current Drinks per week: 2 Alcohol use details: BEER Substance use: never Substance use type: does not use Gender identity (if verbalized by the patient): Male Sexual Orientation (if Verbalized by the Patient): Straight or Heterosexual Spiritual care concerns: No Agree to blood products: Yes Exam Narrative: GENERAL: Well-appearing, well-nourished, and in no acute distress. HEAD: Normocephalic, atraumatic. EYES: PERRLA and EOMI. ENT: Nares clear, no rhinorrhea or epistaxis. Mucous membranes moist. Oropharynx without tonsillar hypertrophy exudate or other lesions. Bilateral TMs pearly huerta nonbulging NECK: Supple. No adenopathy or masses. No carotid bruits or JVD CHEST: Clear to auscultation. No respiratory distress. No wheezes rales or rhonchi HEART: Regular rate and rhythm. No murmur heard. Normal peripheral pulses. ABDOMEN: Soft, nontender, nondistended, normal active bowel sounds. EXTREMITIES: Normal range of motion. No stef
[2021-05-16 16:58] LABS: Basophils Absolute Auto 0.1 K/mm3 (0.0-0.1); Basophils Percent Auto 0.8 % (0.2-1.2); Eosinophils Absolute Auto 0.2 K/mm3 (0-0.3); Eosinophils Percent Auto 3.7 % (0-4.4); Hematocrit 42.4 % (42.0-52.0); Hemoglobin 14.5 g/dL (14.0-18.0); Immature Granulocyte Absolute 0.02 K/mm3 (0.00-0.031); Immature Granulocyte Percent A 0.3 % (0-0.5); Lymphocytes Absolute Auto 1.97 K/mm3 (0.9-3.2); Lymphocytes Percent Auto 31.5 % (18.3-44.2); Mean Corpuscular HGB Conc 34.2 g/dl (32-36); Mean Corpuscular Hemoglobin 29.2 pg (26-34); Mean Corpuscular Volume 85.5 fl (80-100); Mean Platelet Volume 9.9 fl (7.4-10.4); Monocytes Absolute Auto 0.5 K/mm3 (0.1-0.6); Monocytes Percent Auto 8.5 % (2.6-8.5); Neutrophils Absolute Auto 3.5 K/mm3 (1.3-6.7); Neutrophils Percent Auto 55.2 % (45.5-73.1); Platelet Count Result 188 k/mm3 (150-375); Red Blood Count 4.96 M/mm3 (4.6-6.20); Red Cell Distribution Width 14.2 % (11.5-14.5); White Blood Count 6.3 K/mm3 (4.5-10.0)
[2021-05-16 17:16] LABS: Partial Thromboplastin Time 26.9 SECONDS (22.3-36.8)
[2021-05-16 17:25] LABS: Alanine Aminotransferase 34 U/L (4-50); Albumin Level 4.3 g/dL (3.5-5.1); Alkaline Phosphatase 55 U/L (38-126); Anion Gap 6 mmol/L (8-16); Aspartate Amino Transferase 29 U/L (17-59); Bilirubin,Total 0.4 mg/dL (0.2-1.3); Blood Urea Nitrogen 17 mg/dL (9-20); Calcium 9.3 mg/dL (8.4-10.2); Carbon Dioxide 30 mmol/L (22-30); Chloride 104 mmol/L (98-107); Estimated CRCL calculation 72 ml/min; Estimated Glomerular Filt Rate > 60; Glucose 136 mg/dL (65-110); Lipase 71 U/L (23-300); Potassium 3.5 mmol/L (3.4-5.0); Sodium 140 mmol/L (137-145)
[2021-05-16 17:37] LABS: Troponin I < 0.012 ng/mL (0.000-0.034)
--- NOTE | 2021-05-16 17:58 | PC.NURSE ---
Called lab and talked to martha and added Alannah Mendiola 17:58
[2021-05-16 18:54] LABS: D Dimer 0.27 ug/mL (<0.48)
[2021-05-16 20:07] LABS: Troponin I < 0.012 ng/mL (0.000-0.034)
== END 2021-05-16 20:41 | disposition home or self-care (01) ==
PROVIDERS: Emergency Medicine; Emergency Provider Nurse Practitioner Family; PCP Family Medicine
DX: R00.1 Bradycardia, unspecified (principal); F41.9 Anxiety disorder, unspecified; J45.909 Unspecified asthma, uncomplicated; N40.0 Benign prostatic hyperplasia without lower urinary tract symptoms; I25.10 Atherosclerotic heart disease of native coronary artery without angina pectoris; E78.5 Hyperlipidemia, unspecified; I10 Essential (primary) hypertension; I34.1 Nonrheumatic mitral (valve) prolapse; Z95.5 Presence of coronary angioplasty implant and graft; Z79.82 Long term (current) use of aspirin; Z87.891 Personal history of nicotine dependence; R94.31 Abnormal electrocardiogram [ECG] [EKG]
CPT/HCPCS: 36415; 80053; 83690; 84484; 85025; 85380; 85610; 85730; 93005; 99284

== ENCOUNTER 2021-05-27 07:40 | Outpatient (CLI) | payer OTHER, SELFPAY ==
--- NOTE | ~2021-05-27 | US_ITS ---
US abdomen complete EXAMINATION: US Abdomen Complete INDICATION: Epigastric pain for approximately 6 months PROCEDURE: Realtime High Resolution abdomen ultrasound. COMPARISON: No prior studies for comparison FINDINGS: Gallbladder wall is mildly thickened measuring 4 mm. No gallstones are identified. Common bile duct measures 4 mm. There are multiple liver cysts. Otherwise, unremarkable liver parenchyma. Pancreas within normal limi ts. Pancreatic tail is obscured by bowel gas. Spleen is unremarkeable. Renal echotexture is within normal limits bilaterally without hydronephrosis, contour deforming mass or renal stone. Right kidney measures 10.4 cm. Left kidney measures 11 cm. Visualized aspects of the aorta and IVC are within normal limits. Portal vein is patent. No sonograph ic Benson's sign indicated by the technologist. IMPRESSION: 1: Mild gallbladder wall thickening. This could indicate interstitial edema, chronic liver disease or chronic cholecystitis. 2: Liver cysts. Reviewed, dictated and finalized at location A. [employer] IMPRESSION: 1: Mild gallbladder wall thickening. This could indicate interstitial edema, ch ronic liver disease or chronic cholecystitis. 2: Liver cysts.
== END 2021-05-27 07:41 | disposition home or self-care (01) ==
PROVIDERS: PCP Family Medicine; Visit Provider Family Medicine
DX: R10.13 Epigastric pain (principal); K76.89 Other specified diseases of liver
CPT/HCPCS: 76700

== ENCOUNTER → 2021-06-05 02:17 | Outpatient (CLI) | payer OTHER, SELFPAY ==
[2021-06-05 11:06] LABS: SARS-CoV-2 RNA PCR Negative
== END ==
PROVIDERS: PCP Family Medicine; Visit Provider Family Medicine
DX: R68.89 Other general symptoms and signs (principal); Z20.822 Contact with and (suspected) exposure to COVID-19
CPT/HCPCS: C9803; U0003; U0005

== ENCOUNTER 2021-06-11 07:29 | Outpatient (CLI) | payer OTHER, SELFPAY ==
--- NOTE | ~2021-06-11 | NM_ITS ---
EXAMINATION: NM hepatobiliary wo pharm DATE: 06/11/2021 14:00 INDICATION: Epigastric pain COMPARISON: None. TECHNIQUE: 5 mCi Tc-99m mebrofenin (Choletec) was administered intravenously. Scintigraphic images o f the abdomen were obtained for one hour. At the 1 hour time point, the patient drank 8 oz Ensure, an d imaging was continued for 60 minutes. Gallbladder ejection fraction was calculated by the technolog ist. FINDINGS: There is normal clearance of radiotracer from the blood pool. There is homogeneous tracer u ptake by the liver. Activity progresses to the bowel and gallbladder. The gallbladder ejection fract ion (GBEF) is 69%. Note that with this technique, normal GBEF >= 33%. IMPRESSION: 1. Normal hepatobiliary scan. Reviewed, dictated and finalized at location A.
== END 2021-06-11 07:30 | disposition home or self-care (01) ==
LOC: ANHIMG 07:31
PROVIDERS: PCP Family Medicine; Visit Provider Family Medicine
DX: R10.13 Epigastric pain (principal); R93.2 Abnormal findings on diagnostic imaging of liver and biliary tract
CPT/HCPCS: 78226; A9537

== ENCOUNTER 2021-12-23 08:16 | Outpatient (CLI) | payer MEDICARE, OTHER, SELFPAY ==
--- NOTE | ~2021-12-23 | CT_ITS ---
EXAMINATION: CT abdomen pelvis w con INDICATION: Epigastric abdominal pain TECHNIQUE: Computed tomographic images of the abdomen and pelvis were obtained after the administrati on of 100 cc of Omnipaque 350 intravenous contrast. The dose-length product (DLP) was 953.62 mGy-cm. Automated exposure control and iterative reconstruction technique were employed. COMPARISON: 11/14/2019 FINDINGS: The lung bases are clear. The heart size is normal. Cysts of the liver measure up to 3.6 cm in the left hepatic lobe. The spleen pancreas, gallbladder, and adrenal glands are normal. The kidne ys are unremarkable. No pathologically enlarged abdominal or pelvic lymph nodes are identified. There is no free intraperitoneal gas or evidence of bowel obstruction. The appendix is normal. Colonic div erticulosis is present without evidence of diverticulitis. There is moderate enlargement of the prost ate. There are bilateral inguinal hernias containing fat. There is mild lumbar spondylosis. A fat-con taining umbilical hernia is noted. IMPRESSION: 1. No CT correlate for the patient's symptoms. Reviewed, dictated and finalized at location A.
[2021-12-23 08:52] LABS: Estimated Glomerular Filt Rate > 60
== END 2021-12-23 08:17 | disposition home or self-care (01) ==
PROVIDERS: PCP Family Medicine; Visit Provider Physician Assistant Medical
DX: R10.13 Epigastric pain (principal)
CPT/HCPCS: 74177; Q9967

== ENCOUNTER 2022-01-31 11:40 | Observation (INO) | payer MEDICARE, OTHER, SELFPAY ==
[2022-01-31] VITALS (16 sets, daily range): BP systolic 87–168; BP diastolic 50–95; PULSE 55–81; RESP 15–19; TEMP 36.4–36.5; O2SAT 92–99; BMI 33.0
--- NOTE | ~2022-01-31 | XR_ITS ---
XR chest 2V DATE: 01/31/2022 12:35 INDICATION: Dizziness, lightheadedness. History of hypertension. TECHNIQUE: AP and lateral views COMPARISON: 02/18/2021 CT chest 02/22/2022 view chest FINDINGS: Normal heart size. Minimal aortic unfolding. No hilar or mediastinal enlargement. No pulmonary infiltrate or consolidation, pleural effusion or pulmonary vascular congestion or pneumo thorax. Status post lower anterior cervical spine surgical fusion. IMPRESSION: No active cardiopulmonary disease Reviewed, dictated and finalized at location A.
--- NOTE | 2022-01-31 12:08 | ED.DIZZY ---
HPI - Dizziness General Chief Complaint: Dizziness Stated Complaint: dizzy/visual changes Time Seen by Provider: 01/31/22 11:58 History of Present Illness HPI Narrative: Patient is a 71-year-old male with a history of hypertension, hyperlipidemia, CAD status post YOAV x2 presenting with lightheadedness. Patient was at [facility] when he suddenly became very lightheaded and weak. His noticed him stumbling so pulled up a chair and he was able to sit down. EMS was called and found him to have a blood pressure in the 80s over 50s. They gave him a 200 cc bolus and his pressures came up to the 90s over 60s. Patient states that his symptoms have improved but he still feels slightly lightheaded and tired. He denies any chest pain, shortness of breath, palpitations, diaphoresis, numbness, weakness. States he was recently treated with antibiotics for a respiratory infection. States he still has a mild cough. He denies any abdominal pain, nausea or vomiting, diarrhea, dysuria, leg swelling. Related Data Home Medications Medication Instructions Recorded Confirmed tamsulosin 0.4 mg capsule 0.4 mg PO QPM 04/04/19 01/31/22 aspirin 81 mg tablet,delayed 81 mg PO DAILY 07/04/19 01/31/22 release (Adult Low Dose Aspirin) atorvastatin 80 mg tablet 80 mg PO DAILY 07/04/19 01/21/22 lisinopril 20 1 tablet PO DAILY 07/04/19 01/31/22 mg-hydrochlorothiazide 25 mg tablet carvedilol 3.125 mg tablet 3.125 mg PO BID 04/18/20 01/31/22 acetaminophen 500 mg capsule 1,000 mg PO Q6H PRN pain 06/11/20 01/31/22 Allergies Allergy/AdvReac Type Severity Reaction Status Date / Time No Known Allergies Allergy Verified 01/21/22 10:54 Review of Systems Review of Systems: All systems reviewed & are unremarkable except as noted in HPI and below [facility] Past Medical History Medical History (Updated 02/01/22 @ 20:40 by Yasmin Yeboah MD) Asthma BPH (benign prostatic hyperplasia) CAD (coronary artery disease) Hiatal hernia HLD (hyperlipidemia) HTN (hypertension) Mild asthma Mitral valve prolapse Surgical History Surgical History (Updated 01/31/22 @ 21:01 by Maribel Gant PA-C) History of fusion of cervical spine Hx of cardiac catheterization Hx of heart artery stent (~2016) Status post coronary artery stent placement Family History Family History Other Diabetes mellitus Social History Social History (Updated 01/31/22 @ 21:02 by Maribel Gant PA-C) Social History: Surrogate medical decision maker: Pia Brian, spouse. Code status: Full code. Smoking packs per day: 0.5 Smoking cigarettes per day: 10.0 Years smoked: 8 Smoking pack-years: 4.00 Smoking status: Former smoker Second hand tobacco smoke exposure: No Alcohol intake: current Drinks per week: 2 Alcohol use details: BEER Substance use: never Substance use type: does not use Has the Lack of Transportation Kept You From Medical Appointments or From Getting Medications?: No Within the Past 12 Months, Were You Worried Whether Your Food Would Run Out Before You Got Money to Buy More?: Never True What is Your Housing Situation Today?: I Have Housing Are You Worried That in the Next 2 Months, You May Not Have Your Own Housing to Live In?: No Do You Have Trouble Paying Your Heating Or Electricity Bill?: No Do You Have Trouble Paying For Medicines?: No Are You Currently Unemployed and Looking for Work?: No Highest Level of Education Completed: Bachelor's Degree Do You Have Trouble With Childcare or the Care of a Family Member?: No Additional living arrangements comments: Lives in [place] with spouse. Additional occupation/education comments: Retired. Spiritual care concerns: No Agree to blood products: Yes Exam Narrative: GENERAL: Well-appearing, well-nourished, and in no acute distress. HEAD: Normocephalic, atraumatic. EYES: PERRLA and EOMI. ENT: Nares
[2022-01-31 12:22] LABS: Basophils Absolute Auto 0.1 K/mm3 (0.0-0.1); Basophils Percent Auto 0.7 % (0.2-1.2); Eosinophils Absolute Auto 0.4 K/mm3 (0-0.3); Eosinophils Percent Auto 5.1 % (0-4.4); Hematocrit 41.1 % (42.0-52.0); Hemoglobin 13.4 g/dL (14.0-18.0); Immature Granulocyte Absolute 0.04 K/mm3 (0.00-0.031); Immature Granulocyte Percent A 0.6 % (0-0.5); Lymphocytes Absolute Auto 2.04 K/mm3 (0.9-3.2); Lymphocytes Percent Auto 29.1 % (18.3-44.2); Mean Corpuscular HGB Conc 32.6 g/dl (32-36); Mean Corpuscular Hemoglobin 28.6 pg (26-34); Mean Corpuscular Volume 87.6 fl (80-100); Mean Platelet Volume 9.2 fl (7.4-10.4); Monocytes Absolute Auto 0.6 K/mm3 (0.1-0.6); Monocytes Percent Auto 8.4 % (2.6-8.5); Neutrophils Absolute Auto 3.9 K/mm3 (1.3-6.7); Neutrophils Percent Auto 56.1 % (45.5-73.1); Platelet Count Result 218 k/mm3 (150-375); Red Blood Count 4.69 M/mm3 (4.6-6.20); Red Cell Distribution Width 14.2 % (11.5-14.5)
[2022-01-31] MEDS: SODIUM CHLORIDE 0.9% IV 1,000 ML 999 ML IV CONT ×2 (12:28→13:12)
[2022-01-31 12:34] LABS: Lactic Acid Reflex 1.7 mmol/L (0.7-2.0)
[2022-01-31 12:37] LABS: INR 1.1; Partial Thromboplastin Time 21.1 SECONDS (22.3-36.8); Prothrombin Time 13.4 Seconds (11.1-14.7)
[2022-01-31 12:39] LABS: Alanine Aminotransferase 34 U/L (6-50); Alkaline Phosphatase 68 U/L (38-126); Anion Gap 12 mmol/L (8-16); Aspartate Amino Transferase 30 U/L (17-59); Bilirubin,Total 0.6 mg/dL (0.2-1.3); Blood Urea Nitrogen 21 mg/dL (9-20); Calcium 7.9 mg/dL (8.4-10.2); Carbon Dioxide 25 mmol/L (22-30); Chloride 100 mmol/L (98-107); Estimated CRCL calculation 62 ml/min; Estimated Glomerular Filt Rate 60; Glucose 137 mg/dL (65-110); Potassium 3.7 mmol/L (3.4-5.0); Sodium 137 mmol/L (137-145)
[2022-01-31 12:48] LABS: Troponin I < 0.012 ng/mL (0.000-0.034)
--- NOTE | 2022-01-31 12:56 | ECG_ITS ---
Measurements Intervals [place] Rate: 72 P: 58 MI: 168 QRS: 9 QRSD: 88 T: 48 QT: 395 QTc: 434 Interpretive Statements SINUS RHYTHM LOW QRS VOLTAGE IN PRECORDIAL LEADS CONSIDER INFERIOR INFARCT, AGE INDETERMINATE BORDERLINE T WAVE ABNORMALITY- ANTERIOR LEADS BASELINE WANDER- AVR, AVL, AVF ABNORMAL ECG COMPARED TO ECG 05/16/2021 15:50:25 NO SIGNIFICANT CHANGES Electronically Signed On 01-31-2022 20:02:51 CDT by Girma Jacob D.O.
[2022-01-31 14:54] LABS: Appearance Urine Clear (Clear); Bilirubin Urine Negative (Negative); Blood Urine Negative (Negative); Color Urine Yellow (Yellow); Glucose Urine UA Negative (Negative); Ketones Urine Negative (Negative); Leukocyte Esterase Ur Negative LEU/UL (Negative); Nitrate Urine Negative (Negative); Protein Urine Negative (Negative); Specific Grav Ur 1.015 (1.001-1.035); Urobilinogen Urine 0.2 mg/dL (<2.0); pH Urine 6.5 (5.0-9.0)
[2022-01-31 15:01] LABS: Mucus Urine Rare /lpf; RBC Urine 0-2 /hpf (0-2); Squamous Epithelial Cell Urine Rare /hpf (Few); WBC Urine 0-3 /hpf
[2022-01-31 15:02] LABS: Influenza A QL RT-PCR Negative (Negative); Influenza B QL RT-PCR Negative (Negative); SARS-CoV-2 RNA PCR Negative
[2022-01-31 15:02] LABS: Add Urine Microscopic? NO
[2022-01-31 15:52] LABS: Troponin I < 0.012 ng/mL (0.000-0.034)
--- NOTE | 2022-01-31 16:00 | PM.IMHP ---
H&P: HPI History of Present Illness Date/Time: 01/31/22 16:00 Chief Complaint: Dizzy. Narrative: This is a very pleasant 71-year-old male with coronary artery disease, hypertension, and hyperlipidemia who presented to the ED for evaluation of dizziness. He had a URI about 2 weeks ago for which he completed a course of unknown antibiotics. His symptoms have mostly resolved however he still has a mild nonproductive cough for which she is taking Tessalon Perles and Mucinex. Over the last 1 week he has had intermittent episodes of lightheadedness with position changes which she has attributed to his recent infection. 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 Shortly after checking out he once again started to feel lightheaded with flashes of bright light and profound weakness. He then had the sudden urge to have a bowel movement and he went into the bathroom where he reports having a normal bowel movement. Unfortunately he continued to feel lightheaded and weak and he had difficulties getting himself up off of the toilet. He exited the bathroom at which time he ?crumpled to the ground onto his knees? and EMS was summoned. He was pale and dry at that time. On their arrival his blood pressure was in 80s over 50s and he was given a 200 milliliters bolus in route to the hospital. Despite receiving to liters of normal saline in the emergency department, his blood pressures have remained in the 90s to low 100 systolic and he has been bradycardic in the 50s (baseline heart rate in the 70s) and I was asked to admit the patient in this setting. He reports feeling a lot better after receiving the IV fluids and he is wondering if he may have been a bit dehydrated as he has not been eating and drinking as usual the last couple of weeks due to his illness. He also remarks that his urine was quite dark when he was giving a urine sample. He has been taking his medications as usual and he denies that he could have accidentally taken more medication than prescribed. He has no current complaints and denies headache, vertigo, focal weakness, paresthesias, chest pain, pleuritic pain, palpitations, nausea, vomiting, and sweats. Review of Systems Review of Systems: Twelve systems were reviewed and are negative except for as per HPI. PMFSH Past Medical History Medical History (Updated 01/31/22 @ 21:04 by Maribel Gant PA-C) Asthma BPH (benign prostatic hyperplasia) CAD (coronary artery disease) Hiatal hernia HLD (hyperlipidemia) HTN (hypertension) Mild asthma Mitral valve prolapse Surgical History Surgical History (Updated 01/31/22 @ 21:01 by Maribel Gant PA-C) History of fusion of cervical spine Hx of cardiac catheterization Hx of heart artery stent (~2016) Status post coronary artery stent placement Family History Family History Other Diabetes mellitus Social History Social History (Updated 01/31/22 @ 21:02 by Maribel Gant PA-C) Social History: Surrogate medical decision maker: Pia Torres, spouse. Code status: Full code. Smoking packs per day: 0.5 Smoking cigarettes per day: 10.0 Years smoked: 8 Smoking pack-years: 4.00 Smoking status: Former smoker Second hand tobacco smoke exposure: No Alcohol intake: current Drinks per week: 2 Alcohol use details: BEER Substance use: never Substance use type: does not use Has the Lack of Transportation Kept You From Medical Appointments or From Getting Medications?: No Within the Past 12 Months, Were You Worried Whether Your Food Would Run Out Before You Got Money to Buy More?: Never True What is Your Housing Situation Today?: I Have Housing Are You Worried That in the Next 2 Months, You May Not Have Your Own Housing to Live In?: No Do You Have Trouble Paying Your Heating Or Electricity Bill?: No Do You Have Trouble Paying For Medi
--- NOTE | 2022-01-31 17:58 | ADMGEN ---
This patient, Tim Torres, was admitted to 3 Med Surg Room 313-01 at 1755. Patient/family oriented to hospital policies and general routines including ID bracelet, bed and alarms, visiting hours, pain management, procedures, bathroom and other care routines, personal items, smoking policy, room service/diet, and visiting hours. Information on how to activate the Rapid Response Team has been discussed. Patient/Family are encouraged to report perceived risks to care and to ask questions if they do not understand what they are told or what they should do.
[2022-01-31 19:30] LABS: Troponin I < 0.012 ng/mL (0.000-0.034)
[2022-01-31] MEDS: AMITRIPTYLINE HCL 25 MG TABLET 50 MG PO (23:55)
[2022-01-31] MEDS: TAMSULOSIN HCL 0.4 MG CAPSULE PO (23:56)
[2022-01-31] MEDS: carvediloL 3.125 MG TABLET PO (23:56)
[2022-02-01] VITALS: PULSE 64
--- NOTE | 2022-02-01 01:16 | PC.NURSE ---
Daylight Savings Time For Daylight Savings Time Ending in the Fall - Clocks are moved back. For Daylight Savings Time Beginning in the Spring - Clocks are moved ahead. For [facility], the time of change occurs at 0200 hrs. Time is taken from the kitchen food server. This entry on the patient's chart recognizes the change in time reflected during documentation. Example: 2 entries for vital signs may be charted for 0200 hrs.
[2022-02-01 04:00] VITALS: PULSE 63
[2022-02-01 06:00] VITALS: BP 110/53; PULSE 74; RESP 20; TEMP 37.1; O2SAT 95
[2022-02-01 07:46] LABS: Hematocrit 38.6 % (42.0-52.0); Hemoglobin 12.9 g/dL (14.0-18.0); Mean Corpuscular HGB Conc 33.4 g/dl (32-36); Mean Corpuscular Hemoglobin 28.5 pg (26-34); Mean Corpuscular Volume 85.2 fl (80-100); Mean Platelet Volume 9.1 fl (7.4-10.4); Platelet Count Result 196 k/mm3 (150-375); Red Blood Count 4.53 M/mm3 (4.6-6.20); Red Cell Distribution Width 14.3 % (11.5-14.5); White Blood Count 9.2 K/mm3 (4.5-10.0)
[2022-02-01 08:00] VITALS: BP 139/68; PULSE 75; PULSE 77; RESP 20; TEMP 36.6; O2SAT 95; O2SAT 97
[2022-02-01 08:10] LABS: Anion Gap 12 mmol/L (8-16); Blood Urea Nitrogen 15 mg/dL (9-20); Calcium 8.1 mg/dL (8.4-10.2); Carbon Dioxide 27 mmol/L (22-30); Chloride 100 mmol/L (98-107); Estimated CRCL calculation 79 ml/min; Estimated Glomerular Filt Rate > 60; Glucose 91 mg/dL (65-110); Magnesium 2.1 mg/dL (1.6-2.3); Potassium 3.3 mmol/L (3.4-5.0); Sodium 139 mmol/L (137-145)
[2022-02-01 08:34] VITALS: PULSE 75; O2SAT 95
[2022-02-01] MEDS: FLUTICASONE/SALMETEROL 115-21 MCG INHALER 1 PUFF 2 PUFF INHALATION (08:36)
[2022-02-01] MEDS: carvediloL 3.125 MG TABLET PO (09:12)
[2022-02-01] MEDS: PANTOPRAZOLE 40 MG TABLET PO (09:12)
[2022-02-01] MEDS: amLODIPine BESYLATE 5 MG TABLET PO (09:12)
[2022-02-01] MEDS: ASPIRIN 81 MG ENTERIC TABLET PO (09:12)
[2022-02-01] MEDS: VENLAFAXINE HCL XR 75 MG CAP.ER.24H 150 MG PO (09:13)
[2022-02-01] MEDS: lisinopriL 20 MG TABLET PO (09:13)
[2022-02-01] MEDS: POTASSIUM CHLORIDE 20 MEQ PACKET (FOR LIQUID) PO (09:14)
[2022-02-01 11:26] VITALS: BP 104/75; BP 131/75
--- NOTE | 2022-02-01 11:26 | PM.DS ---
DS: Admitting Diagnosis Discharge Date February 01, 2022 Admitting Diagnosis hypotension DS: Discharge Diagnosis Discharge Diagnosis (1) Near syncope: Code(s): R55 - Syncope and collapse Status: Acute (2) Hypotension: Code(s): I95.9 - Hypotension, unspecified Status: Acute (3) Bradycardia: Code(s): R00.1 - Bradycardia, unspecified Status: Acute (4) CAD (coronary artery disease): Qualifiers: Coronary Disease-Associated Artery/Lesion type: koi artery [place] vs. transplanted heart: koi heart Associated angina: without angina Qualified Code(s): I25.10 - Atherosclerotic heart disease of koi coronary artery without angina pectoris Code(s): I25.10 - Atherosclerotic heart disease of koi coronary artery without angina pectoris Status: Acute (5) HTN (hypertension): Qualifiers: Hypertension type: essential hypertension Qualified Code(s): I10 - Essential (primary) hypertension Code(s): I10 - Essential (primary) hypertension Status: Acute DS: Summary Hospital Course Hospital Course: patient is a 71-year-old male came in with hypotension And dizziness. By the time he was admitted to symptoms and subsequently resolved. patient reports he is no longer having any complaints his vital signs are stable. I think he is probably a little too much of his blood pressure medication. I decreased his amlodipine. I also counseled him on monitoring his blood pressure at home so he can notify his primary care physician give further recommendations on medication adjustment. Time Spent with Patient Time attestation: Total time spent providing and/or coordinating discharge services: Exam Narrative: General: Well-developed male sitting up in bed in no distress. Weight: 101.4 kilograms. BMI: 33.0. HEENT: PERRL, EOMI. Sclera anicteric. Tacky mucous membranes. Neck: Supple. No obvious carotid bruits. Respiratory: Lungs are clear to auscultation bilaterally. Cardiovascular: Regular rate and rhythm with S1-S2. Pulses in the 70s at the time my evaluation. Gastrointestinal: Abdomen is soft, nontender, and nondistended with positive bowel sounds. Skin: Warm and dry. No rash or lesions on limited exam. Extremities: No cyanosis, clubbing, or edema. Radial and pedal pulses intact. Neurological: Alert. Cranial nerves 2-12 are grossly intact. No gross focal deficits to casual conversation. Psychiatric: Pleasant and cooperative with normal mood and affect. Judgment and insight intact. DS: Data Data Completed and Pending Labs on day of discharge: Labs from last 24 hours 02/01/22 02/01/22 01/31/22 07:03 07:03 18:49 WBC 9.2 RBC 4.53 L Hgb 12.9 L Hct 38.6 L MCV 85.2 MCH 28.5 MCHC 33.4 RDW 14.3 Plt Count 196 MPV 9.1 Immature Gran % (Auto) Neut % (Auto) Lymph % (Auto) [place] % (Auto) Eos % (Auto) Baso % (Auto) Lymph # (Auto) [place] # (Auto) Eos # (Auto) Baso # (Auto) Abs Immat Gran (auto) Absolute Neuts (auto) Absolute Nucleated RBC Nucleated RBC % PT INR APTT Sodium 139 Potassium 3.3 L Chloride 100 Carbon Dioxide 27 Anion Gap 12 BUN 15 D Creatinine 0.90 Estim Creat Clear Calc 79 Estimated GFR > 60 Glucose 91 Lactic Acid Calcium 8.1 L Magnesium 2.1 Total Bilirubin AST ALT Alkaline Phosphatase Troponin I < 0.012 Total Protein Albumin Urine Color Urine Appearance Urine pH Ur Specific [place] Urine Protein Urine Glucose (UA) Urine Ketones Ur Blood (Man) Urine Nitrate Urine Bilirubin Urine Urobilinogen Leukocyte Esterase Rfl Urine RBC Urine WBC Ur Squamous Epith Cells Hyaline Casts Urine Mucus Influenza A (RT-PCR) Influenza B (RT-PCR) SARS-CoV-2 RNA (RT-PCR) 01/31/22 01/31/22 01/31/22 15:26 14:46 14:20 WBC
== END 2022-02-01 12:20 | disposition home or self-care (01) ==
LOC: ANHED 12:17 → ANH3MEDSUR 22:15
PROVIDERS: Physician Assistant; Admitting Provider Internal Medicine; Emergency Provider Emergency Medicine; PCP Family Medicine; Visit Provider Chiropractor
DX: I95.9 Hypotension, unspecified (principal); R55 Syncope and collapse; R00.1 Bradycardia, unspecified; I25.10 Atherosclerotic heart disease of native coronary artery without angina pectoris; I10 Essential (primary) hypertension; E78.5 Hyperlipidemia, unspecified; J45.909 Unspecified asthma, uncomplicated; N40.0 Benign prostatic hyperplasia without lower urinary tract symptoms; I34.1 Nonrheumatic mitral (valve) prolapse; Z20.822 Contact with and (suspected) exposure to COVID-19; Z95.5 Presence of coronary angioplasty implant and graft; Z87.891 Personal history of nicotine dependence; R94.31 Abnormal electrocardiogram [ECG] [EKG]; Z79.82 Long term (current) use of aspirin; Z79.1 Long term (current) use of non-steroidal anti-inflammatories (NSAID); Z79.899 Other long term (current) drug therapy
CPT/HCPCS: 36415; 71046; 80048; 80053; 81003; 83605; 83735; 84484; 85025; 85027; 85610; 85730; 87636; 93005; 94640; 96360; 96361; 99285; A9270; G0378; J7030

== ENCOUNTER 2022-03-23 11:03 | Emergency (ER) | payer MEDICARE, OTHER, SELFPAY ==
--- NOTE | ~2022-03-23 | XR_ITS ---
EXAMINATION: XR hand LT min 3V DATE: 03/23/2022 12:13 INDICATION: Left hand pain and swelling post fall one week prior. TECHNIQUE: Posteroanterior, oblique and lateral views of the left hand were obtained. COMPARISON: None. FINDINGS: Bone alignment is normal. No fracture. 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 Soft tissues are unremarkable. IMPRESSION: 1. No acute osseous abnormality. 2. 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 Reviewed, dictated and finalized at location A. L CUT OFF SAW OPERATOR IMPRESSION: 1. No acute osseous abnormality. 2. Mild polyarticular osteoarthritis at multiple metacarpal phalangeal and inte rphalangeal joints.
[2022-03-23 12:14] VITALS: BP 151/87; PULSE 84; RESP 16; TEMP 36.9; O2SAT 100
--- NOTE | 2022-03-23 12:47 | ED.UPPEXIN ---
HPI - Extremity Injury (Upper) General Chief Complaint: Extremity Injury, Upper Stated Complaint: lt hand injury Time Seen by Provider: 03/23/22 12:46 Source: patient and RN notes reviewed Mode of arrival: ambulatory Limitations: no limitations History of Present Illness HPI narrative: 71-year-old male presents concern for left hand pain. Reports several days ago he fell off a ladder and started having left hand pain. He reports he did not have left hand pain immediately but it started aching later. He reports decreased drawing supervisor strength, and he cannot fully flex his fingers. He reports he has been taking Tylenol and helps the pain. MD complaint: injury to: left and hand Related Data Home Medications Medication Instructions Recorded Confirmed tamsulosin 0.4 mg capsule 0.4 mg PO QPM 04/04/19 02/04/22 aspirin 81 mg tablet,delayed 81 mg PO DAILY 07/04/19 02/04/22 release (Adult Low Dose Aspirin) atorvastatin 80 mg tablet 80 mg PO DAILY 07/04/19 02/04/22 lisinopril 20 1 tablet PO DAILY 07/04/19 02/04/22 mg-hydrochlorothiazide 25 mg tablet carvedilol 3.125 mg tablet 3.125 mg PO BID 04/18/20 02/04/22 acetaminophen 500 mg capsule 1,000 mg PO Q6H PRN pain 06/11/20 02/04/22 Allergies Allergy/AdvReac Type Severity Reaction Status Date / Time No Known Allergies Allergy Verified 03/23/22 12:52 Review of Systems Review of Systems: CONSTITUTIONAL: Denies malaise, chills, sweats, or fever. SKIN: Denies rash or itching, open skin, laceration, abrasion, redness, warmth, swelling. MUSCULOSKELETAL: Reports left hand pain NEUROLOGIC: Denies numbness, weakness All systems reviewed & are unremarkable except as noted in HPI and below PMFSH Past Medical History Medical History Asthma BPH (benign prostatic hyperplasia) CAD (coronary artery disease) Hiatal hernia HLD (hyperlipidemia) HTN (hypertension) Mild asthma Mitral valve prolapse Surgical History Surgical History History of fusion of cervical spine Hx of cardiac catheterization Hx of heart artery stent (~2016) Status post coronary artery stent placement Family History Family History Other Diabetes mellitus Social History Social History (Updated 02/04/22 @ 10:22 by Alexandra Rapp [facility]) Social History: Surrogate medical decision maker: Pia Torres, spouse. Code status: Full code. Smoking packs per day: 0.5 Smoking cigarettes per day: 10.0 Years smoked: 8 Smoking pack-years: 4.00 Smoking status: Former smoker Second hand tobacco smoke exposure: No Alcohol intake: current Drinks per week: 3 Alcohol use details: BEER Substance use: never Substance use type: does not use Lack of Transportation: No Lack of Food: Never True Current Housing: I Have Housing Concerned About Future Housing: No Difficulty Paying Gas/Electric Bills: No Difficulty Paying for Meds: No Currently Unemployed: No Education: Bachelor's Degree Difficulty w/ Childcare or Family Care: No Additional living arrangements comments: Lives in [place] with spouse. Additional occupation/education comments: Retired. Spiritual care concerns: No Agree to blood products: Yes Comments At time of signature, agree with nursing past medical, surgical, social and family history. There is no relevant family history pertinent to the presenting complaint Exam Narrative: GENERAL: Well-appearing, well-nourished, and in no acute distress. HEAD: Normocephalic, atraumatic. EYES: PERRLA, conjunctivae clear NECK: Supple. CHEST: Speaks in full sentences. No respiratory distress. HEART: Regular rate and rhythm. Normal and equal peripheral pulses. EXTREMITIES: Left hand, digits have normal strength and sensation, limited range of motion, cannot fully flex digits 2-5. No edema or ecchymo
== END 2022-03-23 13:11 | disposition home or self-care (01) ==
PROVIDERS: Emergency Provider Nurse Practitioner; PCP Family Medicine
DX: S63.92XA Sprain of unspecified part of left wrist and hand, initial encounter (principal); W11.XXXA Fall on and from ladder, initial encounter; J45.909 Unspecified asthma, uncomplicated; N40.0 Benign prostatic hyperplasia without lower urinary tract symptoms; I25.10 Atherosclerotic heart disease of native coronary artery without angina pectoris; E78.5 Hyperlipidemia, unspecified; I10 Essential (primary) hypertension; I34.1 Nonrheumatic mitral (valve) prolapse; Z95.5 Presence of coronary angioplasty implant and graft; Z87.891 Personal history of nicotine dependence; Z79.82 Long term (current) use of aspirin
CPT/HCPCS: 73130; 99213; G0463

== ENCOUNTER → 2022-05-01 14:07 | Outpatient (CLI) | payer MEDICARE, OTHER, SELFPAY ==
--- NOTE | ~2022-05-01 | XR_ITS ---
Clinical Indication: Cough PA and lateral views of the chest: Comparison: 01/31/2022 Findings: The lungs are clear, without evidence of focal consolidation or pleural effusion. Cardiome diastinal silhouette is within normal limits. Cervical spine fixation hardware noted. Impression: Clear lungs. Reviewed, dictated and finalized at [facility]. INING ENGINEER Impression: Clear lungs.
== END ==
PROVIDERS: PCP Family Medicine; Visit Provider Family Medicine
DX: R05.9 Cough, unspecified (principal)
CPT/HCPCS: 71046

== ENCOUNTER → 2022-05-22 11:02 | Outpatient (CLI) | payer MEDICARE, OTHER, SELFPAY ==
--- NOTE | ~2022-05-22 | XR_ITS ---
EXAMINATION: XR chest 2V 05/22/2022 11:18 INDICATION: Cough PROCEDURE: 2 view chest COMPARISON: Comparison to multiple prior studies sequentially, with oldest reviewed study dated 09/2016. FINDINGS: The lungs are clear. The cardiomediastinal silhouette is within normal limits. There are no pleural effusions. There is no pneumothorax suspected. IMPRESSION: 1: NO ACUTE CARDIOPULMONARY DISEASE. Reviewed, dictated and finalized at location B. T METAL SUPERINTENDENT
== END ==
PROVIDERS: PCP Family Medicine; Visit Provider Physician Assistant Medical
DX: R05.9 Cough, unspecified (principal)
CPT/HCPCS: 71046

== ENCOUNTER 2022-07-29 12:23 | Outpatient (CLI) | payer MEDICARE, OTHER, SELFPAY ==
--- NOTE | ~2022-07-29 | CT_ITS ---
Non-contrast Head CT History: Vertigo COMPARISON: 08/16/2019 Technique: Axial non-contrast imaging of the brain was performed. Dose reduction technique was used on this scan by utilizing automated exposure control and iterative reconstruction technique. The dose -length product (DLP) was 681.00 mGy-cm. Findings: There is no evidence of intracranial hemorrhage, mass lesion, or acute infarct. Brain par enchyma appears normal. The ventricles and subarachnoid spaces are normal in size. The calvarium ap pears normal. The visualized paranasal sinuses and mastoid air cells are clear. Impression: No significant abnormality seen. Reviewed, dictated and finalized at location . Impression: No significant abnormality seen.
== END 2022-07-29 12:24 | disposition home or self-care (01) ==
PROVIDERS: PCP Family Medicine; Visit Provider Family Medicine
DX: R42 Dizziness and giddiness (principal); R26.9 Unspecified abnormalities of gait and mobility
CPT/HCPCS: 70450

== ENCOUNTER 2022-12-20 08:40 | Outpatient (CLI) | payer MEDICARE, OTHER, SELFPAY ==
--- NOTE | ~2022-12-20 | MR_ITS ---
EXAMINATION: MR brain/brain stem wo con DATE: 12/20/2022 09:22 INDICATION: R27.0 - Ataxia, unspecified TECHNIQUE: Magnetic resonance imaging (MRI) of the brain and brainstem was performed without intraven ous contrast. Sequences included sagittal and axial T1-weighted SE, axial diffusion-weighted FS EPI A SSET, axial T2*-weighted GRE, axial T2-weighted FLAIR Propeller, and axial T2-weighted Propeller. Pos tcontrast axial and coronal T1-weighted SE was obtained. Apparent diffusion coefficient (ADC) maps we re created. COMPARISON: 07/27/2008; CT brain 07/29/2022 FINDINGS: No abnormal restricted diffusion to suggest acute ischemic infarct. No MRI evidence of hemorrhage or extra-axial collection. No suspicious foci of susceptibility to suggest prior intraparenchymal hemorr dong. Normal white matter signal. No evidence of advanced or lobar predominant parenchymal volume los s. The basilar cisterns are patent. Flow voids are preserved. Paranasal sinuses are within normal hassan its. Globes and orbital contents are within normal limits. IMPRESSION: Normal MR brain findings Reviewed, dictated and finalized at location K. IMPRESSION: Normal MR brain findings
== END 2022-12-20 08:41 | disposition home or self-care (01) ==
PROVIDERS: PCP Family Medicine; Visit Provider Student in an Organized Health Care Education/Training Program
DX: R27.0 Ataxia, unspecified (principal); R29.898 Other symptoms and signs involving the musculoskeletal system
CPT/HCPCS: 70551

== ENCOUNTER 2023-01-19 09:28 | Outpatient (CLI) | payer MEDICARE, OTHER, SELFPAY ==
--- NOTE | 2023-01-19 11:00 | NEURO_ITS ---
Impression: # Complains of imbalance on ambulation. History of neck surgery. # Normal Nerve Conduction Study including motor and sensory. # Normal needle/EMG exam without neurogenic changes. # Clinical correlation recommended. Nerve Conduction Studies Anti Sensory Summary Table Stim Site NR Peak (ms) P-T Amp (?V) Site1 Site2 Delta-P (ms) Dist (cm) Alfonzo (m/s) Left Sup Fibular Anti Sensory (Ant Lat Mall) 14 cm 3.2 9.9 14 cm Ant Lat Mall 3.2 16.0 50 Right Sup Fibular Anti Sensory (Ant Lat Mall) 14 cm 3.3 9.5 14 cm Ant Lat Mall 3.3 16.0 48 Left Sural Anti Sensory (Lat Mall) Calf 3.6 11.0 Calf Lat Mall 3.6 16.0 44 Right Sural Anti Sensory (Lat Mall) Calf 3.6 15.1 Calf Lat Mall 3.6 16.0 44 Motor Summary Table Stim Site NR Onset (ms) O-P Amp (mV) Site1 Site2 Delta-0 (ms) Dist (cm) Alfonzo (m/s) Left Peroneal Motor (Vastus Med) Ankle 4.1 3.8 Knee Ankle 7.2 52.1 55 Knee 12.0 2.8 Right Peroneal Motor (Vastus Med) Ankle 4.1 3.4 Knee Ankle 8.1 49 52 Kneww 12.1 3.4 Left Tibial Motor (Abd Chopra Brev) Ankle 4.7 9.9 Knee Ankle 8.7 44.0 51 Knee 13.4 6.1 Right Tibial Motor (Abd Chopra Brev) Ankle 4.7 8.1 Knee Ankle 8.4 41.0 49 Knee 13.1 8.5 F Wave Studies NR F-Lat (ms) L-R F-Lat (ms) Left Peroneal (Mrkrs) (EDB) 50.83 1.45 Right Peroneal (Mrkrs) (EDB) 49.38 1.45 Left Tibial (Mrkrs) (Abd Hallucis) 50.63 0.50 Right Tibial (Mrkrs) (Abd Hallucis) 50.12 0.50 EMG Side Muscle Nerve Root Ins Act Fibs Amp Dur Recrt Comment Right AntTibialis Dp Br Fibular L4-5 Nml Nml Nml Nml Nml Right Gastroc Tibial S1-2 Nml Nml Nml Nml Nml Right Fibularis Long Sup Br Fibular L5-S1 Nml Nml Nml Nml Nml Right Flex Dig Long Tibial L5-S2 Nml Nml Nml Nml Nml Right Ext Dig Brev Dp Br Fibular L5, S1 Nml Nml Nml Nml Nml Left AntTibialis Dp Br Fibular L4-5 Nml Nml Nml Nml Nml Left Gastroc Tibial S1-2 Nml Nml Nml Nml Nml Left Fibularis Long Sup Br Fibular L5-S1 Nml Nml Nml Nml Nml Left Flex Dig Long Tibial L5-S2 Nml Nml Nml Nml Nml Left Ext Dig Brev Dp Br Fibular L5, S1 Nml Nml Nml Nml Nml Right QuadratusFem QuadFemoris L4-5, S1 Nml Nml Nml Nml Nml Left QuadratusFem QuadFemoris L4-5, S1 Nml Nml Nml Nml Nml Right ExtHallLong Dp Br Fibular L5, S1 Nml Nml Nml Nml Nml Right Ext Dig Long Dp Br Fibular L5-S1 Nml Nml Nml Nml Nml Left ExtHallLong Dp Br Fibular L5, S1 Nml Nml Nml Nml Nml Left Ext Dig Long Dp Br Fibular L5-S1 Nml Nml Nml Nml Nml MTDD
== END 2023-01-19 09:29 | disposition home or self-care (01) ==
LOC: ANHNEURO 09:28
PROVIDERS: PCP Family Medicine; Visit Provider Student in an Organized Health Care Education/Training Program
DX: R26.9 Unspecified abnormalities of gait and mobility (principal)
CPT/HCPCS: 95886; 95910

== ENCOUNTER 2023-02-04 15:24 | Outpatient (CLI) | payer MEDICARE, OTHER, SELFPAY ==
[2023-02-04 17:02] LABS: Influenza A QL RT-PCR Negative (Negative); Influenza B QL RT-PCR Negative (Negative); RSV RNA, RT-PCR Negative (Negative); SARS-CoV-2 RNA PCR Negative (Negative)
== END 2023-02-04 15:25 | disposition home or self-care (01) ==
LOC: ANHLAB 15:26
PROVIDERS: PCP Family Medicine; Visit Provider Physician Assistant
DX: Z20.822 Contact with and (suspected) exposure to COVID-19 (principal)
CPT/HCPCS: 87637